=== PATIENT | male | born 2000 | race Caucasian/White ===

== ENCOUNTER 2019-04-24 00:23 | Emergency (ER) | payer BC ==
[~2019-04-24] VITALS: Ht 180.3 cm; Wt 73.9 kg
[2019-04-24 01:07] LABS: BASO # 0.1 x10^3/uL (0.0-0.2); BASO % 1 % (0-3); EOS # 0.2 x10^3/uL (0.0-0.7); EOS % 1 % (0-3); HEMATOCRIT 44.4 % (39.0-53.0); HEMOGLOBIN 15.6 g/dL (13.0-17.5); LYMPH # 0.5 x10^3/uL (1.0-4.8); LYMPH % 3 % (24-48); MEAN CORPUSCULAR HEMOGLOBIN 33 pg (25-35); MEAN CORPUSCULAR HGB CONC 35 g/dL (31-37); MEAN CORPUSCULAR VOLUME 95 fL (79-100); MONO # 0.7 x10^3/uL (0.0-1.1); MONO % 4 % (0-9); NEUT # 14.6 x10^3/uL (1.8-7.7); NEUT % 91 % (31-73); PLATELET COUNT 252 x10^3/uL (140-400); RED BLOOD COUNT 4.69 x10^6/uL (4.30-5.70); RED CELL DISTRIBUTION WIDTH 12.9 % (11.5-14.5); WHITE BLOOD COUNT 16.1 x10^3/uL (4.0-11.0)
--- NOTE | 2019-04-24 01:14 | PHYS DOC ---
Past Medical History Past Medical History: No Pertinent History Past Surgical History: No Surgical History Alcohol Use: Rarely Drug Use: None Adult General Chief Complaint Chief Complaint: NAUSEA/VOMITING/DIARRHA HPI HPI 18-year-old male presents to the emergency department with vomiting. Patient states are partially 5:30 PM tonight, described as bile yellow. He has had cough as well as wheezing, diarrhea, abdominal discomfort as well as fever up to 102.3. Patient states he's been taking Tylenol approximately 2000 mg by mouth every 4 hours. Given his continued symptoms presents to the ER for further evaluation. Patient denies any headache or visual changes, denies any rash All other ROS negative unless documented in HPI Review of Systems Review of Systems See Above Current Medications Current Medications Current Medications Medications (Trade) Dose Ordered Sig/Glenny Start Time Stop Time Status Last Admin Dose Admin Albuterol/ Ipratropium (Duoneb) 3 ml 1X ONCE 04/24/19 01:15 04/24/19 01:16 DC 04/24/19 01:32 3 ML Info (CONTRAST GIVEN -- Rx MONITORING) 1 each PRN DAILY PRN 04/24/19 02:15 04/26/19 02:14 Iohexol (Omnipaque 300 Mg/ml) 75 ml 1X ONCE 04/24/19 02:15 04/24/19 02:16 DC 04/24/19 02:14 75 ML Ondansetron HCl (Zofran) 4 mg 1X ONCE 04/24/19 01:30 04/24/19 01:31 DC 04/24/19 01:22 4 MG Sodium Chloride 1,000 ml @ 1,000 mls/hr 1X ONCE 04/24/19 01:15 04/24/19 02:14 DC 04/24/19 01:22 1,000 MLS/HR Allergies Allergies Allergies Coded Allergies Type Severity Reaction Last Updated Verified No Known Drug Allergies 04/24/19 No Physical Exam Physical Exam Constitutional: Well developed, well nourished, no acute distress, non-toxic appearance. [] HENT: Normocephalic, atraumatic, bilateral external ears normal, oropharynx moist, no oral exudates, nose normal. [] Eyes: PERRLA, EOMI, conjunctiva normal, no discharge. [] Cardiovascular:Heart rate regular rhythm, no murmur [] Lungs & Thorax: Bilateral breath sounds clear to auscultation [] Abdomen: Office, generalized tenderness, no right lower quadrant pain appreciated Skin: Warm, dry, no erythema, no rash. [] Extremities: No tenderness, no cyanosis, no clubbing, ROM intact, no edema. [] Neurologic: Alert and oriented X 3, no focal deficits noted. [] Psychologic: Affect normal, judgement normal, mood normal. [] Current Patient Data Vital Signs Vital Signs Date Time Temp Pulse Resp B/P (MAP) Pulse Ox O2 Delivery O2 Flow Rate FiO2 04/24/19 02:06 89 111/77 (88) 97 Room Air 04/24/19 00:29 97.7 17 97.7 Lab Values Laboratory Tests Test 04/24/19 00:45 04/24/19 01:14 White Blood Count 16.1 x10^3/uL (4.0-11.0) H Red Blood Count 4.69 x10^6/uL (4.30-5.70) Hemoglobin 15.6 g/dL (13.0-17.5) Hematocrit 44.4 % (39.0-53.0) Mean Corpuscular Volume 95 fL (79-100) Mean Corpuscular Hemoglobin 33 pg (25-35) Mean Corpuscular Hemoglobin Concent 35 g/dL (31-37) Red Cell Distribution Width 12.9 % (11.5-14.5) Platelet Count 252 x10^3/uL (140-400) Neutrophils (%) (Auto) 91 % (31-73) H Lymphocytes (%) (Auto) 3 % (24-48) L Monocytes (%) (Auto) 4 % (0-9) Eosinophils (%) (Auto) 1 % (0-3) Basophils (%) (Auto) 1 % (0-3) Neutrophils # (Auto) 14.6 x10^3/uL (1.8-7.7) H Lymphocytes # (Auto) 0.5 x10^3/uL (1.0-4.8) L Monocytes # (Auto) 0.7 x10^3/uL (0.0-1.1) Eosinophils # (Auto) 0.2 x10^3/uL (0.0-0.7) Basophils # (Auto) 0.1 x10^3/uL (0.0-0.2) Segmented Neutrophils % 89 % (35-66) H Band Neutrophils % 2 % (0-9) Lymphocytes % 4 % (24-48) L Monocytes % 4 % (0-10) Eosinophils % 1 % (0-5) Platelet Estimate Adequate (ADEQUATE) Sodium Level 143 mmol/L (136-145) Potassium Level 3.3 mmol/L (3.5-5.1) L Chloride Level 104 mmol/L (98-107) Carbon Dioxide Level 26 mmol/L (21-32) Anion Gap 13 (6-14) Blood Urea Nitrogen 10 mg/dL (8-26) Creatinine 1.0 mg/dL (0.7-1.3) Estimated GFR (Cockcroft-Gault) 95.3 BUN/Creatinine Ratio 10 (6-20) Glucose Level 119 mg/dL (70-99) H Calcium Level 10.2 mg/dL (8.5-10.1) H Total Bilirubin 1.8 mg/dL (0.2-1.0) H Aspartate Amino Transferase (AST) 25 U/L (15-37) Alanine Aminotransferase (ALT) 26 U/L (16-63) Alkaline Phosphatase 67 U/L (46-116) Total Protein 9.0 g/dL (6.4-8.2) H Albumin 5.3 g/dL (3.4-5.0) H Albumin/Globulin Ratio 1.4 (1.0-1.7) Acetaminophen Level < 2 mcg/ml (10-30) L Acetaminophen Last Dose Date Acetaminophen Last Dose Time Influenza Type A Antigen Negative (NEGATIVE) Influenza Type B Antigen Negative (NEGATIVE) Laboratory Tests 04/24/19 00:45 Laboratory Tests 04/24/19 00:45 EKG EKG [] Radiology/Procedures Radiology/Procedures [facility] [address] [place], [place] [id number] IMAGING REPORT Signed PATIENT: JOYCE CHEN ACCOUNT: [id number] : 2000 LOCATION: ER AGE: 18 SEX: M EXAM STATUS: REG ER ORD. PHYSICIAN: REGAN MARINA MD REASON: abdominal pain, nausea with vomiting, 16k wbc PROCEDURE: CT ABD PELV W/ IV CONTRST ONLY Examination: CT of the abdomen pelvis with IV contrast HISTORY: History of abdominal pain, nausea, vomiting COMPARISON: None available TECHNIQUE: Axial CT images of the abdomen pelvis were performed with IV contrast. Coronal and sagittal reformats are performed Exposure: One or more of the following individualized dose reduction techniques were utilized for this examination: 1. Automated exposure control 2. Adjustment of the mA and/or kV according to patient size 3. Use of iterative reconstruction technique FINDINGS: The bibasilar lungs are clear. No evidence of free air identified in the abdomen. The liver, spleen, adrenals grossly appears unremarkable. The gallbladder is mildly distended. The stomach is mildly distended. The visualized pancreas grossly appears unremarkable. The small bowel is nondilated. Moderate thickened appearance of the wall of the colon throughout with surrounding inflammatory fat stranding likely diffuse colitis. The appendix is not clearly evident. The distal small bowel loop is mildly fluid distended. The bilateral kidneys enhance symmetrically. The caliber of the aorta grossly appears unremarkable. No evidence of lytic bony destructive lesion. IMPRESSION: 1. Diffuse moderate thickening of the wall of the colon with surrounding inflammatory fat stranding likely diffuse colitis. Electronically signed by: Mitch Frias MD (04/24/2019 2:37 AM) [facility] DICTATED and SIGNED BY: MITCH FRIAS MD DATE: 04/24/19236 [] Course & Med Decision Making Course & Med Decision Making Pertinent Labs and Imaging studies reviewed. (See chart for details) []18-year-old male presents to the emergency department with vomiting. Patient states are partially 5:30 PM tonight, described as bile yellow. He has had cough as well as wheezing, diarrhea, abdominal discomfort as well as fever up to 102.3. Patient states he's been taking Tylenol approximately 2000 mg by mouth every 4 hours. Given his continued symptoms presents to the ER for further evaluation. Patient denies any headache or visual changes, denies any rash Labs reviewed. White blood cell count 16,000, metabolic profile reveals hypokalemia at 3.3. Patient provided IV fluids with improvement of tachycardia. He is afebrile on examination. States he feels better after IV fluids and nausea medicine. At this time after review his CT scan he has evidence of colitis diffuse, would recommend Cipro, Flagyl and Vicodin therapy will attempt by mouth challenge in the emergency department if tolerates will plan for discharge home with by mouth metabolic therapy and Zofran as an outpatient. If he is unable tolerate by mouth plan for admission to the hospital for observation. Discussed findings with patient at bedside. Dragon Disclaimer Lisaon Disclaimer This electronic medical record was generated, in whole or in part, using a voice recognition dictation system. Departure Departure Impression: Primary Impression: Colitis Additional Impression: Nausea & vomiting Disposition: HOME, SELF-CARE Condition: IMPROVED Referrals: NO PCP (PCP) Patient Instructions: Colitis Additional Instructions: Recommend follow up with PCP 3 - 5 days Return to the ER with worsening symptoms, intractable pain, fever, altered mental status Motrin as needed for pain Take antibioitics as directed Zofran as needed for nausea Scripts Albuterol Sulfate (VENTOLIN HFA INHALER) 18 Gm Hfa.aer.ad 2 PUFF INH Q4HRS for FOR ASTHMA, #1 INHALER 0 Refills Prov: REGAN MARINA MD 04/24/19 Ondansetron Hcl (ZOFRAN) 4 Mg Tablet 1 TAB PO PRN Q6-8HRS, #12 TAB Prov: REGAN MARINA MD 04/24/19 Metronidazole (FLAGYL) 500 Mg Tablet 1 TAB PO TID for 7 Days, #21 TAB Prov: REGAN MARINA MD 04/24/19 Ciprofloxacin Hcl (CIPRO) 250 Mg Tablet 2 TAB PO BID for infection for 7 Days, #28 TAB Prov: REGAN MARINA MD 04/24/19 Problem Qualifiers Additional Impression: Nausea & vomiting Vomiting type: bilious vomiting Qualified Codes: R11.14 - Bilious vomiting REGAN MARINA MD Apr 24, 2019 01:14
[2019-04-24] MEDS ORDERED: IPRATRPIUM/ALBUTEROL 0.5/2.5MG 3 ML NEBU. NEB ONE (01:15)
[2019-04-24] MEDS ORDERED: IV NORMAL SALINE 1000ML BAG 1,000 ML IV ONE (01:15)
[2019-04-24 01:19] LABS: CALCIUM 10.2 mg/dL (8.5-10.1); GFR 95.3; POTASSIUM 3.3 mmol/L (3.5-5.1)
[2019-04-24 01:21] LABS: ACETAMIN < 2 mcg/ml (10-30)
[2019-04-24] MEDS ORDERED: ONDANSETRON PF 4 MG/2 ML VIAL. IV ONE (01:30)
[2019-04-24 01:31] LABS: ALBUMIN 5.3 g/dL (3.4-5.0); ALBUMIN/GLOBULIN RATIO 1.4 (1.0-1.7); TOTAL BILIRUBIN 1.8 mg/dL (0.2-1.0)
[2019-04-24 01:39] LABS: INFLUENZA A PATIENT NEGATIVE (NEGATIVE); INFLUENZA B PATIENT NEGATIVE (NEGATIVE)
[2019-04-24 01:42] LABS: % BANDS 2 % (0-9); % EOS 1 % (0-5); % LYMPHS 4 % (24-48); % MONOS 4 % (0-10); % SEGS 89 % (35-66); PLT ESTIMATE ADEQUATE (ADEQUATE)
[2019-04-24] MEDS ORDERED: CONTRAST GIVEN. MC PRN (02:15)
[2019-04-24] MEDS ORDERED: IOHEXOL 300 MG/ML 100ML VIAL. IV ONE (02:15)
--- NOTE | 2019-04-24 02:40 | RAD ---
Examination: CT of the abdomen pelvis with IV contrast HISTORY: History of abdominal pain, nausea, vomiting COMPARISON: None available TECHNIQUE: Axial CT images of the abdomen pelvis were performed with IV contrast. Coronal and sagittal reformats are performed Exposure: One or more of the following individualized dose reduction techniques were utilized for this examination: 1. Automated exposure control 2. Adjustment of the mA and/or kV according to patient size 3. Use of iterative reconstruction technique FINDINGS: The bibasilar lungs are clear. No evidence of free air identified in the abdomen. The liver, spleen, adrenals grossly appears unremarkable. The gallbladder is mildly distended. The stomach is mildly distended. The visualized pancreas grossly appears unremarkable. The small bowel is nondilated. Moderate thickened appearance of the wall of the colon throughout with surrounding inflammatory fat stranding likely diffuse colitis. The appendix is not clearly evident. The distal small bowel loop is mildly fluid distended. The bilateral kidneys enhance symmetrically. The caliber of the aorta grossly appears unremarkable. No evidence of lytic bony destructive lesion. IMPRESSION: 1. Diffuse moderate thickening of the wall of the colon with surrounding inflammatory fat stranding likely diffuse colitis. Electronically signed by: Mitch Frias MD (04/24/2019 2:37 AM) [facility]
[2019-04-24] MEDS ORDERED: METR500T PO (03:04)
[2019-04-24] MEDS ORDERED: VENTOLIN HFA18 GM INH (03:04)
[2019-04-24] MEDS ORDERED: CIPR250T30 PO (03:04)
[2019-04-24] MEDS ORDERED: ONDA4TAB7 PO (03:04)
[2019-04-24] MEDS ORDERED: CIPROFLOXACIN HCL 250 MG TABLET. PO ONE (03:15)
[2019-04-24] MEDS ORDERED: metroNIDAZOLE 500 MG TABLET PO ONE (03:15)
[2019-04-24] MEDS ORDERED: POTASSIUM CHLORIDE 20 MEQ TABLET.ER. PO ONE (03:15)
[2019-04-24 03:16] VITALS: BP 133/56
--- NOTE | 2019-04-24 05:06 | RAD ---
EXAM: CHEST 1 VIEW History: Cough, shortness of breath COMPARISON: None available. TECHNIQUE: Single portable radiograph of the chest FINDINGS: The cardiac silhouette is unremarkable. The lungs are clear bilaterally. The costophrenic sulci are clear and well demarcated. IMPRESSION: No radiographic evidence of an acute cardiopulmonary process. Electronically signed by: Mitch Frias MD (04/24/2019 5:03 AM) [facility]
== END 2019-04-24 03:40 | disposition home or self-care (01) ==
LOC: ER 00:23
DX: K52.9 Noninfective gastroenteritis and colitis, unspecified (principal); R05 Cough
CPT/HCPCS: 36415; 71045; 74177; 80053; 80329; 85007; 85025; 87804; 94640; 96361; 96374; 99285; J2405; J7030; J7620; Q9967; G0480